=== PATIENT | female | born 1965 | race Caucasian/White ===

== ENCOUNTER 2024-09-25 19:17 | Emergency (ER) | payer OTHER, SELFPAY ==
--- NOTE | ~2024-09-25 | XR_ITS ---
HISTORY: pain left elbow after shoveling 2 days ago. COMPARISON: None TECHNIQUE: 4 views of the left elbow were performed FINDINGS: No acute fracture is identified. No elevation of the anterior or posterior fat pads are identified to suggest a supracondylar fracture . Overlying soft tissues are unremarkable. Bone mineralization is age-appropriate. IMPRESSION: No acute fracture, as detailed above. Reviewed, dictated and finalized at location [facility]. [facility]
[2024-09-25 19:23] VITALS: BP 128/75; PULSE 16; RESP 16; TEMP 36.3; O2SAT 100
--- NOTE | 2024-09-25 19:25 | ED_ITS ---
HPI - Extremity Injury (Upper) General Chief Complaint: Extremity Injury, Upper Stated Complaint: Left Elbow Pain Time Seen by Provider: 09/25/24 19:20 Source: patient Mode of arrival: ambulatory Limitations: no limitations History of Present Illness HPI narrative: Patient is a 59-year-old female who presents with left elbow pain for 3 days after shoveling snow. Patient states she has swelling to her elbow but denies any injury. Denies any numbness, tingling or weakness to the distal portion of arm. Related Data Home Medications ?Medication ?Instructions ?Recorded ?Confirmed ?Last Taken ?Type albuterol sulfate 2.5 mg/3 mL mg 09/25/24 Unknown History (0.083 %) solution for nebulization blood sugar diagnostic (OneTouch 09/25/24 09/25/24 Unknown History Ultra Test strips) ibuprofen 800 mg tablet mg 09/25/24 Unknown History insulin lispro 100 unit/mL subcut 09/25/24 Unknown History subcutaneous pen (Humalog KwikPen (U-100) Insulin) insulin syringe-needle U-100 1 mL 09/25/24 09/25/24 Unknown History 30 gauge x 5/16 (TRUEplus Insulin) nirmatrelvir 300 mg (150 mg ea PO 09/25/24 Unknown History x2)-ritonavir 100 mg tablet,dose pack (Paxlovid) Allergies Allergy/AdvReac Type Severity Reaction Status Date / Time No Known Allergies Allergy Verified 09/25/24 19:30 Review of Systems Review of Systems: All systems reviewed & are unremarkable except as noted in HPI and below Constitutional: Constitutional: Denies body ache(s), Denies chills, Denies fatigue, Denies fever(s), Denies headache(s), Denies malaise and Denies weakness Eyes: Eyes: Denies blurry vision, Denies irritation and Denies loss of vision ENT: Denies otalgia, Denies headache(s), Denies nasal discharge, Denies sinus pain and Denies sore throat Cardiovascular: Cardiovascular: Denies chest pain, Denies irregular heart rhythm and Denies dyspnea Respiratory: Respiratory: Denies dyspnea Gastrointestinal: Gastrointestinal: Denies abdominal pain, Denies melena, Denies hematochezia, Denies diarrhea, Denies nausea and Denies vomiting Musculoskeletal: Musculoskeletal: Denies back pain, Denies myalgias and Reports arthralgias Integumentary/Breasts: Skin/Breast: Denies pruritus and Denies rash Neurologic: Denies headache(s), Denies loss of vision and Denies weakness Psychiatric: Psychiatric: Reports no additional psychiatric complaints Endocrine: Endocrine: Denies fatigue PMFSH Comments At time of signature, agree with nursing past medical, surgical, social and family history. There is no relevant family history pertinent to the presenting complaint. Exam Const: General: cooperative, healthy appearing, comfortable, no acute distress and well nourished Nutritional Appearance: well nourished Orientation/consciousness: patient oriented x3 Limitations: no limitations HENMT: Head: normal to inspection, normocephalic and atraumatic Ears: hearing grossly normal bilaterally and external ears normal Face/Nose/Sinus: Normal external nose present, normal facial exam and face symmetric Face and sinus: normal facial exam and face symmetric Mouth: Yes lip normal Eyes: General: appearance normal, both eyes and all related structures Alignment and Position: alignment normal and position normal Periorbital: periorbital findings normal Eyelids: eyelids normal Pupils: Equal, round and reactive pupils present EOM: EOMs intact bilaterally Neck: Neck: normal visual inspection, full ROM and supple Chest: Chest palpation & inspection: normal inspection of the chest Resp: Effort & Inspection: normal respiratory effort and able to speak in complete sentences Auscultation: clear to auscultation bilaterally Cardio: Rate: regular rate Rhythm: regular rhythm Heart sounds: S1 normal heart sound present and S2 normal heart sound present GI: Inspection: normal to inspection Skin: General skin exam: normal color and no rashes or lesions noted Neuro: General: patient oriented x3 and moves all extremities Cranial nerves: Yes Equal, round and reactive pupils present Speech: normal speech Gait exam (Neuro): Normal gait present Extrem: General: normal to inspection, full ROM and no edema Left upper extremity: elbow/forearm tenderness of the lateral epicondyle, swelling of the lateral epicondyle (very mild), normal ROM and distal pulses intact Psych: Appearance: grossly normal and well kempt Mental Status: mental status grossly normal Speech and movement: Normal speech and movement present Affect: normal affect Attitude: cooperative Thought process: Normal thought process present Course Course Emergency Course: Patient is aware of diagnosis, understands and agrees to treatment plan. Anticipatory guidance given. Patient agrees to follow-up as directed and is aware of reasons to seek care at the emergency department. Portions of this record may have been created with voice recognition software Level of Care: Express Care Visit Vital Signs Vital signs: Reviewed MDM - Extremity Injury (Upper) MDM Narrative Medical decision making narrative: Brooks wrap and sling applied Pt well hydrated appearing, in no respiratory distress, hemodynamically stable. Recommend supportive care. The patient is stable at time of discharge the clinical impression was discussed and the patient was given the opportunity to ask questions, which were addressed as completely as possible given the information available at present. Anticipatory guidance and return to care precautions were discussed and the importance of primary care follow-up was stressed and encouraged. The patient voiced understanding of the plan, indications to return, and the need for follow-up. Exam findings show no acute concerns or changes Patient is appropriate for outpatient treatment and follow-up. Differential Diagnosis Differential diagnosis: Likely other (The strain, elbow dislocation, elbow tendinitis, elbow bursitis) Imaging Data Radiologist's impression: HISTORY: pain left elbow after shoveling 2 days ago. COMPARISON: None TECHNIQUE: 4 views of the left elbow were performed FINDINGS: No acute fracture is identified. No elevation of the anterior or posterior fat pads are identified to suggest a supracondylar fracture. Overlying soft tissues are unremarkable. Bone mineralization is age-appropriate. IMPRESSION: No acute fracture, as detailed above. Discharge Plan Discharge Clinical Impression: Left elbow tendonitis Patient Disposition: Home, Self-Care Condition: Stable Instructions: Tendinitis (ED) Additional Instructions: Xray showed no fracture per my interpretation. Will call you tomorrow morning with radiologist results. Minimize activities that aggravate the condition The RICE protocol. Follow the RICE protocol as soon as possible after your injury:. Ice should be immediately applied to keep the swelling down. It can be used for 20 to 30 minutes, three or four times daily. Do not apply ice directly to your skin. Compression dressings, bandages or brooks-wraps will immobilize and support your injured elbow. Elevate your elbow above the level of your heart as often as possible during the first 48 hours. Medication: For pain, you may take: Tylenol 650-1000mg by mouth every 4-6 hours. Do not exceed 4000mg in 24 hours. Advil (Ibuprofen) 600 mg by mouth every 6 hours. Do not exceed 2400mg in 24 hours. 8 AM: Tylenol 11 AM: Ibuprofen 2 PM: Tylenol 5 PM: Ibuprofen 8 PM: Tylenol 11 PM: Ibuprofen 2 AM: Tylenol 5 AM: Ibuprofen Please schedule a follow-up visit with your personal physician for further evaluation and treatment within 1week OR If your symptoms persist, change or worsen significantly before you can contact your personal physician then please, without delay, go to the emergency department for further evaluation. Patient Language: Maldivian Prescriptions: No Action (DME) insulin syringe-needle U-100 [TRUEplus Insulin] 1 mL 30 gauge x 5/16 syringe MISCELLANEOUS albuterol sulfate 2.5 mg /3 mL (0.083 %) solution for nebulization ibuprofen 800 mg tablet (DME) OneTouch Ultra Test Strip MISCELLANEOUS insulin lispro [Humalog KwikPen Insulin] 100 unit/mL insulin pen SUBCUT Paxlovid 300 mg (150 mg x 2)-100 mg tablets,dose pack PO Follow-up/Referrals: Omar,Maye Bradley MD [Primary Care Provider] - 3 Days Time of Disposition: 19:54
== END 2024-09-25 20:02 | disposition home or self-care (01) ==
PROVIDERS: Emergency Provider Nurse Practitioner Family; PCP Internal Medicine Gastroenterology
DX: M77.12 Lateral epicondylitis, left elbow (principal); E11.9 Type 2 diabetes mellitus without complications; M19.90 Unspecified osteoarthritis, unspecified site
CPT/HCPCS: 73080; 99203; A4565; G0463

== ENCOUNTER 2025-04-17 14:32 | Outpatient (RCR) | payer OTHER, SELFPAY | END 2025-07-02 11:43 | disposition home or self-care (01) | LOC: ANHDMC 14:32 | PROVIDERS: PCP Internal Medicine Gastroenterology; Visit Provider Emergency Medicine | DX: E11.65 Type 2 diabetes mellitus with hyperglycemia (principal); Z71.89 Other specified counseling | CPT/HCPCS: G0108 ==